=== PATIENT | female | born 1945 | race African-American/Black ===

== ENCOUNTER → 2020-08-18 | Outpatient (CLI) | payer MEDICARE, OTHER ==
[~2020-08-18] MED LIST: ALDACTONE 25MG25 M1 PO; ALLOPURINOL100 MG PO; ALPRAZOLAM0.5 MG PO; ASPIRIN E.C. 8181 MG PO; ATENOLOL25 MG PO; ATIVAN; BLOOD PRESSURE MED PO; BYSTOLIC5 MG PO; CALCIUM CITRAT950 MG PO; CARDIZEM 60MG T60 MG PO; CARDIZEM 90MG T90 MG PO; CENTRUM SILVER1 CTB PO; CENTRUM SILVER1 TA1 PO; CEPHALEXIN500 M1 PO; CORDARONE200 MG/TAB PO; COUMADIN 1MG1 MG/TAB PO; COUMADIN 5MG5 MG/TAB PO; COZAAR100 MG PO; DEMADEX 20MG20 M1 PO; DEMADEX10 MG PO; DYAZIDE 25 MG-31 CAP PO; FOLIC ACID 40400 MCG PO; HAIR SKIN AND NAILS PO; HCTZ 25MG TAB25 MG PO; LASIX 20MG TABL20 MG; LASIX 20MG TABL20 MG PO; LASIX 40MG TABL40 MG PO; LEVOTHROID0.088 MG PO; LEVOTHYROXINE PO; LEVOXYL0.125 MG PO; LISINOPRIL5 MG PO; LOPRESSOR 550 MG/TAB PO; MAXZIDE; MOBIC 7.5MG7.5 MG PO; MULTAQ400 MG PO; NORVASC2.5 MG PO; OXYCODONE5 MG PO; PERCOCET 325 MG1 TA2 PO; PRINIVIL10 MG PO; SENNA-S 50 MG-81 TAB PO; SIMVISTATIN; TOPROL XL 25MG25 MG PO; TRIAMTERENE/HCT1 TAB PO; ULTRAM 50MG TAB50 MG; ULTRAM 50MG TAB50 MG PO; VITAMIN C500 MG PO; XANAX .25M0.25 MG/TA PO; ZEBETA 5MG5 MG PO; ZESTRIL 5MG5 MG PO; ZOCOR; ZOCOR 40MG40 MG PO; ZOFRAN ODT4 MG PO; ZYLOPRIM 100MG100 MG PO
== END ==
LOC: MC.RAD 13:15
DX: Z12.31 Encounter for screening mammogram for malignant neoplasm of breast (principal); N63.10 Unspecified lump in the right breast, unspecified quadrant

== ENCOUNTER → 2020-08-24 | Outpatient (CLI) | payer MEDICARE | LOC: MC.RAD 07:00 | DX: N60.81 Other benign mammary dysplasias of right breast (principal) ==

== ENCOUNTER 2020-12-01 11:08 | Inpatient (IN) | payer MEDICARE, OTHER ==
[~2020-12-01] VITALS: Ht 160 cm; Wt 139.5 kg
[~2020-12-01 11:08] MED LIST changes: -COUMADIN 1MG1 MG/TAB PO; -DEMADEX10 MG PO; -MOBIC 7.5MG7.5 MG PO; -SENNA-S 50 MG-81 TAB PO; -ZOFRAN ODT4 MG PO
[2020-12-01] MEDS ORDERED: MOBIC 7.5MG7.5 MG PO (12:14)
[2020-12-01 13:17] VITALS: BP 98/48; PULSE 73; TEMP 97.3
[2020-12-01 13:47] LABS: BASO % 0.2 % (0.0-2.0); EOS # 0.1 (0.0-0.7); EOS % 1.3 % (0-4.0); GRAN # 6.8 (1.4-6.5); GRAN % 74.5 % (42.2-75.2); HEMOGLOBIN 10.7 g/dl (12.5-16.0); LYMPH # 1.5 (1.2-3.4); LYMPH % 16.8 % (20.0-51.0); MEAN CELL VOLUME 97 fl (80.0-100.0); MEAN CORPUSCULAR HEMOGLOBIN 30 pg (27.0-31.0); MEAN CORPUSCULAR HGB CONC 31 g/dl (33.0-37.0); MEAN PLATELET VOLUME 13.2 fl (7.4-10.4); MONO # 0.6 (0.1-0.6); MONO % 6.9 % (1.7-9.3); PLATELET COUNT 167 K/mm3 (130-400); RED BLOOD COUNT 3.58 M/mm3 (4.10-5.30); REDCELL DISTRIBUTION WIDTH-CV 15.1 % (11.5-14.5)
[2020-12-01 13:49] LABS: HEMATOCRIT 34.6 % (37.0-47.0)
[2020-12-01 13:56] LABS: INR 7.1 (0.8-3.0); PROTHROMBIN TIME 80.2 SECONDS (9.7-12.8)
--- NOTE | 2020-12-01 14:02 | NUR ---
REPORTED LABS TO DR. PULIDO
[2020-12-01 15:58] LABS: CALCIUM 10.5 mg/dL (8.4-10.2); CREATININE, serum 5.71 (0.52-1.25); POTASSIUM 5.5 mmol/L (3.4-5.0)
--- NOTE | 2020-12-01 16:53 | NUR ---
PT TO FLOOR DIRECT ADMIT FROM DR. ORTEGA'S OFFICE. PT ORIENTED TO ROOM IV TO [facility]. STRICT I/O. AHA DIET. TRANSFERS WITH ASSIST X1. PT'S IN AND OUT THIS PM. VSS AND ASSESMENTS COMPLETE.
--- NOTE | 2020-12-01 17:55 | NUR ---
PT UP TO BR VOIDED AND RETURNED TO BED WITH SBA X1.
--- NOTE | 2020-12-01 19:27 | NUR ---
awake, alert, oriented x 4, able to make needs known, sitting in bed, denies needs at this time, call laboy w/i reach. WIll continue to monitor.
[2020-12-01 20:41] VITALS: BP 112/60; BP 84/40; PULSE 60; PULSE 87; TEMP 97.6; TEMP 97.8
--- NOTE | 2020-12-02 00:10 | NUR ---
B/P 84/40, Asymptomatic, awake, alert, oriented x 4, call placed to Coni Julio, no new orders- monitor and recheck B/P in 1 hour.
[2020-12-02 04:20] VITALS: BP 97/51; PULSE 71; TEMP 97.7
[2020-12-02 06:56] LABS: PROTHROMBIN TIME 33.8 SECONDS (9.7-12.8)
[2020-12-02 06:58] LABS: CALCIUM 10.1 mg/dL (8.4-10.2); CREATININE, serum 5.83 (0.52-1.25); POTASSIUM 5.6 mmol/L (3.4-5.0)
--- NOTE | 2020-12-02 07:00 | NUR ---
Report with MAE Kirby. Pt resting in bed, awake and alert, denies needs at this time. Call light in reach.
[2020-12-02 08:09] LABS: IRON,SERUM 58 ug/dL (35-150)
[2020-12-02 08:18] LABS: TOTAL IRON BINDING CAPACITY 283 ug/dL (265-497)
[2020-12-02 08:38] VITALS: BP 91/43; PULSE 72; TEMP 97.8
--- NOTE | 2020-12-02 09:30 | NUR ---
Assessment complete. Pt sitting up in bed eating breakfast, A&O x 4. Edema to bilat lower ext 2+. Pt reports pain to back from laying in bed, denies need for medication at this time. Saline lock IV to left forearm without s/s of complications. Physical assessment otherwise unremarkable. No further needs reported. Call light in reach.
[2020-12-02 12:27] VITALS: BP 84/37; PULSE 81; TEMP 98.3
--- NOTE | 2020-12-02 13:21 | NUR ---
Pt reports nausea that has been present since yesterday, requesting medication if available. Provider notified. Order received.
--- NOTE | 2020-12-02 14:07 | NUR ---
VIJAY met with the patient and her , Venkatesh Lopez" (ph#[phone]), to discuss discharge plan. The patient lives in [place] with her . She reports independence with ADLs and has a walker and canes. The patient's PCP is Dr. Ge Viera and she receives her medications from [facility]. She reports no difficulties obtaining her meds. The patient does not have a DPOA-HC in EMR, but she states that she does have one completed and home. She states that her is her DPOA-HC. PT/OT worked with the patient and recommend SNF vs home health. VIJAY discussed these options with the patient and her . They report that they need some time to think about the options and whether they would want to pursue SNF or home health. VIJAY provided them with Medicare.gov's list of SNF's and home health agencies around [place] [employer]. SW to continue to follow. *Discharge plan: SNF vs home with home health*
[2020-12-02 17:10] VITALS: BP 92/47; PULSE 71; TEMP 98.6
--- NOTE | 2020-12-02 17:50 | NUR ---
Pt resting in bed, visiting with , reports nausea is better when at rest but did come back recently during exercise. No further needs reported. Call light in reach.
--- NOTE | 2020-12-02 19:06 | NUR ---
Report to MAE Kirby.
--- NOTE | 2020-12-02 19:23 | NUR ---
Awake, alert, oriented x 4, able to make needs known, telemetry in use, updated on plan of care, denies pain, at bedside, call laboy w/i reach,
[2020-12-02 21:22] VITALS: BP 98/41; PULSE 68; TEMP 98.7
[2020-12-03] VITALS (7 sets, daily range): BP systolic 74–94; BP diastolic 37–50; PULSE 59–71; TEMP 97.7–98.2
[2020-12-03 06:44] LABS: BASO % 0.3 % (0.0-2.0); EOS # 0.3 (0.0-0.7); EOS % 3.7 % (0-4.0); GRAN # 4.9 (1.4-6.5); GRAN % 55.5 % (42.2-75.2); HEMOGLOBIN 10.6 g/dl (12.5-16.0); LYMPH # 2.8 (1.2-3.4); LYMPH % 31.6 % (20.0-51.0); MEAN CELL VOLUME 97 fl (80.0-100.0); MEAN CORPUSCULAR HEMOGLOBIN 30 pg (27.0-31.0); MEAN CORPUSCULAR HGB CONC 31 g/dl (33.0-37.0); MEAN PLATELET VOLUME 13.9 fl (7.4-10.4); MONO # 0.8 (0.1-0.6); MONO % 8.7 % (1.7-9.3); PLATELET COUNT 160 K/mm3 (130-400); REDCELL DISTRIBUTION WIDTH-CV 15.2 % (11.5-14.5)
[2020-12-03 06:56] LABS: ALBUMIN 3.1 gm/dL (3.5-5.0); BILIRUBIN,TOTAL 0.7 mg/dL (0.0-1.0); CALCIUM 9.9 mg/dL (8.4-10.2); CREATININE, serum 5.61 (0.52-1.25); POTASSIUM 5.5 mmol/L (3.4-5.0); TOTAL PROTEIN 6.1 gm/dL (6.4-8.2)
[2020-12-03 07:08] LABS: MAGNESIUM 2.1 mg/dL (1.6-2.3)
--- NOTE | 2020-12-03 10:00 | NUR ---
Assessment completed, alert/oriented, vital signs stable, denies pain or discomfort, heart RRR/ paced on teled, lungs diminished and distant, patient is morbidly obese, distal pulses are difficulty to palpate, UOP is margainal and notfied physician, a.m meds given, she denies other needs
[2020-12-03 11:19] LABS: INR 1.5 (0.8-3.0); PROTHROMBIN TIME 17.2 SECONDS (9.7-12.8)
--- NOTE | 2020-12-03 13:11 | NUR ---
Initial visit; Patient and her thanked Firesetter for looking in on her and offering encouragement and prayer for God's blessings and healing. Firesetter will continue to look in on Emmanuel.
--- NOTE | 2020-12-03 14:24 | NUR ---
Supervisor Color Paste Mixing attended clinical rounds with the team. SW advised Hospitalist that recommendation is for SNF vs Home Health. Patient states she has made up her mind and she will be returning home upon discharge. Patient states she will consider Home Health and review options with her . Discharge Plan: Home with possible Home Health
--- NOTE | 2020-12-03 15:38 | NUR ---
I met with Mrs Lopez at bedside today to talk about goals of care. Pt does agree that she has some health issues but offers little input into her goals of care. She did call her who particpated in the latter part of this conversation. She did identify that being at home is important to her. She pays the piano and cello and enjoys doing crossword puzzles. She reports that she is very hopeful that Dr Tejada and Dr Burk can work together to find medications that work well together for her heart and kidneys. 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 I talked with her about making decisions that consider her "goals of care" and what they are wanting the outcome to be but also not allowing themselves to be "painted into a corner" that they do not want. Both and Mrs Lopez seem very aware of the serious situations they are facing but having a hard time putting it all together. I will try to follow up with them tomorrow after they have had a chance to talk with each other. At this point they are still wanting aggressive care.
[2020-12-04 04:54] VITALS: BP 94/40; PULSE 61; TEMP 97.9
[2020-12-04 06:59] LABS: INR 1.5 (0.8-3.0)
[2020-12-04 07:01] LABS: CALCIUM 9.7 mg/dL (8.4-10.2); CREATININE, serum 5.39 (0.52-1.25); MAGNESIUM 2.1 mg/dL (1.6-2.3); POTASSIUM 5.6 mmol/L (3.4-5.0)
[2020-12-04 07:51] VITALS: BP 111/57; PULSE 71; TEMP 97.9
--- NOTE | 2020-12-04 09:10 | NUR ---
Spoke with patient and her this morning. She reports very firmly that she is doing well "and I am not going to think about dying". "I am feeling fine and we are just waiting for things to get better." is supportive of her thinking as they have talked about it. I will wait to see how her situation progresses as currently we are waiting for some of her previous meds to clear her system, seeing how her cardiac function may improve as well as her renal function although both have shown a decline over the last 6 months.
--- NOTE | 2020-12-04 10:02 | NUR ---
Shift assessment complete. Pt lying in bed, A&Ox4. at bedside. Pt denies chest pain/SOA/dizziness, reports mild pain to outsides of legs w/touch. BLE w/2+ edema. Also reports intermittent nausea, zofran given per orders. BP stable this morning at 111/57. Denies other needs. Continuing to monitor.
--- NOTE | 2020-12-04 10:12 | NUR ---
Follow-up visit; Patient and her thanked Information Security Engineer for looking in on Emmanuel and wishing her a good weekend and God's blessings. Information Security Engineer also replaced the absent cross on the wall for patient and who expressed appreciation for the gesture.
[2020-12-04 12:00] VITALS: BP 102/39; PULSE 64; TEMP 98.3
--- NOTE | 2020-12-04 15:11 | NUR ---
Sludge Filtration Operator followed up with patient who advised she has not made a decision yet on Home Health services. SW will continue to follow.
[2020-12-04 16:00] VITALS: BP 81/41; PULSE 60; TEMP 98
[2020-12-04 19:43] VITALS: BP 84/41; PULSE 61; TEMP 98
[2020-12-04 20:13] VITALS: BP 90/52
--- NOTE | 2020-12-04 22:40 | NUR ---
Pt BP is still low. I was able to give her all her schedule meds and rechecked the BPlater to make sure BP doesn't drop lower. The last BP check was 92/51. Will continue to monitor.
[2020-12-05] VITALS (8 sets, daily range): BP systolic 84–111; BP diastolic 29–53; PULSE 56–98; TEMP 97.8–98.3
--- NOTE | 2020-12-05 07:12 | NUR ---
Pt sitting up in the chair at this time. She is complaints of some nausea, prn given
[2020-12-05 07:31] LABS: HEMOGLOBIN 10.9 g/dl (12.5-16.0); MEAN CELL VOLUME 97 fl (80.0-100.0); MEAN CORPUSCULAR HEMOGLOBIN 30 pg (27.0-31.0); MEAN CORPUSCULAR HGB CONC 31 g/dl (33.0-37.0); MEAN PLATELET VOLUME 14.1 fl (7.4-10.4); PLATELET COUNT 146 K/mm3 (130-400); RED BLOOD COUNT 3.64 M/mm3 (4.10-5.30); REDCELL DISTRIBUTION WIDTH-CV 15.1 % (11.5-14.5)
[2020-12-05 07:33] LABS: HEMATOCRIT 35.3 % (37.0-47.0)
[2020-12-05 07:40] LABS: CALCIUM 9.8 mg/dL (8.4-10.2); CREATININE, serum 5.01 (0.52-1.25); POTASSIUM 5.4 mmol/L (3.4-5.0)
[2020-12-05 07:44] LABS: INR 1.8 (0.8-3.0); PROTHROMBIN TIME 20.1 SECONDS (9.7-12.8)
--- NOTE | 2020-12-05 08:00 | NUR ---
Pt resting in her chair with her eyes closed and even non labored breathing
--- NOTE | 2020-12-05 17:59 | NUR ---
Pt has sat up in the chair all day per her request. She has slept off and on. No complaints of pain and has had a poor appetite only eating a small amount.
--- NOTE | 2020-12-06 03:29 | NUR ---
Pt was a little drowsy when i came in but easy to arouse.Pt's BP was super low i was unable to give her the lasix but PA is aware of that. Will continue to monitor.
[2020-12-06 04:16] VITALS: BP 94/37; PULSE 66; TEMP 98.9
[2020-12-06 07:46] VITALS: BP 87/47; PULSE 59; TEMP 98.4
[2020-12-06 08:22] LABS: HEMOGLOBIN 10.6 g/dl (12.5-16.0); MEAN CELL VOLUME 97 fl (80.0-100.0); MEAN CORPUSCULAR HEMOGLOBIN 31 pg (27.0-31.0); MEAN CORPUSCULAR HGB CONC 32 g/dl (33.0-37.0); MEAN PLATELET VOLUME 13.8 fl (7.4-10.4); PLATELET COUNT 138 K/mm3 (130-400); RED BLOOD COUNT 3.46 M/mm3 (4.10-5.30)
[2020-12-06 08:27] LABS: HEMATOCRIT 33.6 % (37.0-47.0)
[2020-12-06 08:31] LABS: CALCIUM 9.6 mg/dL (8.4-10.2); CREATININE, serum 4.98 (0.52-1.25); POTASSIUM 4.9 mmol/L (3.4-5.0)
[2020-12-06 08:37] LABS: INR 2.2 (0.8-3.0); PROTHROMBIN TIME 24.9 SECONDS (9.7-12.8)
--- NOTE | 2020-12-06 11:51 | NUR ---
Assessment completed, alert/oriented, vital signs signs remain stable despite continue soft B/P, she reports generalized aches/ discomfort from laying in hospital bed, PT/OT are working with patient, heart RRR/ SR on tele, lungs CTA/dimishied and distant as patient is obese, she reports overall feeling better, Purewick in place and is helping with accurate I/O documentation, edema to BLE is improved, at bedside, Neph and Cards have already been by to see patient, no changes at this time, patient denies othe rneeds currently
[2020-12-06 17:00] VITALS: BP 81/43; PULSE 58; TEMP 98.2
[2020-12-06 20:16] VITALS: BP 81/46; PULSE 64; TEMP 98.3
--- NOTE | 2020-12-06 21:42 | NUR ---
Patient laying in bed upon enter the room. Shift assessment completed. Patient alert and oriented. Patient denies chest pain, SOB/dyspnea, N/V, headache, or dizziness. Patient reports moderate pain to left elbow area. Able to move all the upper and lower extremities and follow commands. PRN Oxycodone given for pain. All scheduled meds given at this time. Purewick in place and draining clear yellow urine. Call light within reach. Patient denies any needs at this time.
[2020-12-07] VITALS (7 sets, daily range): BP systolic 86–100; BP diastolic 38–53; PULSE 59–63; TEMP 98.1–98.8
[2020-12-07 06:25] LABS: HEMOGLOBIN 10.7 g/dl (12.5-16.0); MEAN CELL VOLUME 96 fl (80.0-100.0); MEAN CORPUSCULAR HEMOGLOBIN 30 pg (27.0-31.0); MEAN CORPUSCULAR HGB CONC 32 g/dl (33.0-37.0); PLATELET COUNT 140 K/mm3 (130-400); RED BLOOD COUNT 3.53 M/mm3 (4.10-5.30); REDCELL DISTRIBUTION WIDTH-CV 15.1 % (11.5-14.5)
[2020-12-07 06:31] LABS: INR 2.4 (0.8-3.0); PROTHROMBIN TIME 26.3 SECONDS (9.7-12.8)
[2020-12-07 06:45] LABS: CALCIUM 9.8 mg/dL (8.4-10.2); CREATININE, serum 4.98 (0.52-1.25); POTASSIUM 4.8 mmol/L (3.4-5.0)
--- NOTE | 2020-12-07 07:03 | NUR ---
Report with MAE Rivero. Pt sitting up in bed, awaiting breakfast, assisted with prepping to brush her teeth. Pt denies further needs. Call light in reach.
--- NOTE | 2020-12-07 08:45 | NUR ---
Assessment complete. Pt resting in bed, denies pain at this time, A&O x 4. 1+ edema to Bilat lower ext. Saline lock IV to left forearm without s/s of complications. Physical assessment otherwise unremarkable. External catheter in place with clear, yellow urine. No further needs reported. Call light in reach.
--- NOTE | 2020-12-07 09:59 | NUR ---
Follow-up visit; Patient using telephone, Knit Goods Washer wished her well and offered God's blessings.
--- NOTE | 2020-12-07 13:42 | NUR ---
Pt reports having cramping pain to abd ("stomach") that is intermittent. Pt still has not had a BM, agrees to take morning dose of Miralax now. PRN Mrilandean recently administered d/t c/o nausea following moving from chair to bed.
--- NOTE | 2020-12-07 16:43 | NUR ---
Spraying Machine Operator spoke with Dr. Burk who advised from his standpoint, patient could be discharged tomorrow. SW followed up with patient and her about Home Health and they advised they have not made a decision at this time.
--- NOTE | 2020-12-07 17:30 | NUR ---
Pt up to bathroom, able to have BM, hard formed with bright red blood, pt reports hemorrhoids. Pt reports feeling a little better after having BM.
--- NOTE | 2020-12-07 22:57 | NUR ---
Patient laying in bed upon enter. Shift assessment completed. Patient pleasant, alert and oriented. Patient denies any pain or discomfort. Denies SOB, N/V, headache, or dizziness. Purewick in place and draining yellow urine. All scheduled meds given per AUG. Call light within reach. Will continue to monitor.
[2020-12-08 05:01] VITALS: BP 89/40; PULSE 61; TEMP 98.7
[2020-12-08 06:09] LABS: BASO % 0.1 % (0.0-2.0); EOS # 0.1 (0.0-0.7); EOS % 1.3 % (0-4.0); GRAN # 4.8 (1.4-6.5); GRAN % 62.7 % (42.2-75.2); HEMOGLOBIN 10.3 g/dl (12.5-16.0); LYMPH # 1.8 (1.2-3.4); MEAN CELL VOLUME 96 fl (80.0-100.0); MEAN CORPUSCULAR HEMOGLOBIN 31 pg (27.0-31.0); MEAN CORPUSCULAR HGB CONC 32 g/dl (33.0-37.0); MEAN PLATELET VOLUME 13.2 fl (7.4-10.4); MONO % 12.4 % (1.7-9.3); PLATELET COUNT 136 K/mm3 (130-400); RED BLOOD COUNT 3.38 M/mm3 (4.10-5.30); REDCELL DISTRIBUTION WIDTH-CV 14.9 % (11.5-14.5)
[2020-12-08 06:14] LABS: HEMATOCRIT 32.5 % (37.0-47.0)
[2020-12-08 06:18] LABS: ALBUMIN 2.9 gm/dL (3.5-5.0); CALCIUM 9.4 mg/dL (8.4-10.2); CREATININE, serum 4.68 (0.52-1.25); PHOSPHOROUS 3.8 mg/dL (2.5-4.5); POTASSIUM 4.6 mmol/L (3.4-5.0)
--- NOTE | 2020-12-08 07:00 | NUR ---
Report with MAE Rivero. Pt sitting up in bed, awake and alert, denies needs at this time. Purewick external catheter in place with clear, yellow urine, no s/s of complications. Call light in reach.
[2020-12-08 07:24] VITALS: BP 105/48; PULSE 60; TEMP 99.1
[2020-12-08] MEDS ORDERED: DEMADEX 20MG20 M1 PO ×2 (08:21)
[2020-12-08 11:02] VITALS: BP 90/42; PULSE 61; TEMP 99
--- NOTE | 2020-12-08 11:02 | NUR ---
Patient with questions regarding more affordable nutrition supplement comparable to Nepro. Equate Vanilla Original nutrition shakes heave 370 mg K+ per serving. Encouraged her to try and eat meals but if she does not, then one shake okay but if she eats a substantial meal of a protein and 1-2 sides, then skip the nutritional shake. Encouraged small snacks between meals due to decreased appetite.
--- NOTE | 2020-12-08 12:01 | NUR ---
Pt assisted from BSC to chair after having large formed BM with slight blood tinge. Pt requests resting for a bit in the chair and having her protein shake lunch prior to getting ready for discharge. Pt's in room. No further needs reported. Call light in reach.
--- NOTE | 2020-12-08 13:00 | NUR ---
Discharge instructions reviewed with pt and pt's regarding medication changes and follow-up appointments. Pt and verbalize understanding, questions invited and understanding. Pt discharged home, escorted out of facility via WC accompanied by PHP MAGENTO DEVELOPER and pt's .
--- NOTE | 2020-12-08 13:35 | NUR ---
Asphalt Machine Operator attended clinical rounds with the team and patient to discharge home today. Hospitalist discussed Home Health services with patient who is agreeable to this. VIJAY reviewed Medicare.gov list of HH agencies with patient who states she will talk it over with her and follow up. At a later time, patient's approached VIJAY and advised they selected [facility]. VIJAY contacted Kana at [facility] and faxed discharge orders/referral. Kana advised that they are able to accept referral at this time. Discharge Plan: Home with [facility].
[2020-12-08] MEDS ORDERED: ZOFRAN ODT4 MG PO (13:58)
== END 2020-12-08 13:30 | disposition home health service (06) | DRG 314 ==
LOC: MEDICAL 11:08
PROVIDERS: Internal Medicine; Internal Medicine Nephrology; Physician Assistant; ADMIT Internal Medicine
DX: I95.9 Hypotension, unspecified (principal); I50.21 Acute systolic (congestive) heart failure; I13.0 Hypertensive heart and chronic kidney disease with heart failure and stage 1 through stage 4 chronic kidney disease, or unspecified chronic kidney disease; N17.9 Acute kidney failure, unspecified; Z68.43 Body mass index [BMI] 50.0-59.9, adult; N18.4 Chronic kidney disease, stage 4 (severe); E78.5 Hyperlipidemia, unspecified; I48.0 Paroxysmal atrial fibrillation; E03.9 Hypothyroidism, unspecified; M10.9 Gout, unspecified; E66.01 Morbid (severe) obesity due to excess calories; G47.30 Sleep apnea, unspecified; K58.9 Irritable bowel syndrome, unspecified; F32.9 Major depressive disorder, single episode, unspecified; F41.9 Anxiety disorder, unspecified; R79.1 Abnormal coagulation profile; R77.8 Other specified abnormalities of plasma proteins; D63.1 Anemia in chronic kidney disease; M19.90 Unspecified osteoarthritis, unspecified site; R53.81 Other malaise; Z96.653 Presence of artificial knee joint, bilateral; Z79.01 Long term (current) use of anticoagulants; Z88.2 Allergy status to sulfonamides
CPT/HCPCS: 99222-AI; 99232-AI; 99233-AI; 99239; J2405

== ENCOUNTER → 2020-12-14 | Outpatient (CLI) | payer MEDICARE, OTHER ==
[~2020-12-14] MED LIST changes: +COUMADIN 1MG1 MG/TAB PO; +DEMADEX10 MG PO; +MOBIC 7.5MG7.5 MG PO; +SENNA-S 50 MG-81 TAB PO; +ZOFRAN ODT4 MG PO
[2020-12-14 19:09] LABS: CALCIUM 9.1 mg/dL (8.4-10.2); CREATININE, serum 3.02 (0.52-1.25); POTASSIUM 3.9 mmol/L (3.4-5.0)
== END ==
LOC: ZCOL.LAB 18:33
PROVIDERS: Internal Medicine
DX: Z01.89 Encounter for other specified special examinations (principal)

== ENCOUNTER 2020-12-16 14:49 | Inpatient (IN) | payer MEDICARE, OTHER ==
[2020-12-16] VITALS (61 sets, daily range): O2SAT 92–99
[~2020-12-16] VITALS: Ht 160 cm; Wt 118.8 kg
[~2020-12-16 14:49] MED LIST changes: -COUMADIN 1MG1 MG/TAB PO; -DEMADEX10 MG PO; -SENNA-S 50 MG-81 TAB PO
[2020-12-16 15:35] LABS: HEMOGLOBIN 11.3 g/dl (12.5-16.0); MEAN CELL VOLUME 94 fl (80.0-100.0); MEAN CORPUSCULAR HEMOGLOBIN 29 pg (27.0-31.0); MEAN CORPUSCULAR HGB CONC 31 g/dl (33.0-37.0); MEAN PLATELET VOLUME 11.6 fl (7.4-10.4); PLATELET COUNT 278 K/mm3 (130-400); RED BLOOD COUNT 3.85 M/mm3 (4.10-5.30); REDCELL DISTRIBUTION WIDTH-CV 14.6 % (11.5-14.5)
[2020-12-16 15:40] LABS: HEMATOCRIT 36.2 % (37.0-47.0)
[2020-12-16 15:44] LABS: ARTERIAL BLD GAS O2 SATURATION 91.5 % (92-100); ARTERIAL BLD GAS TCO2 CT 22.6; ARTERIAL BLOOD GAS BASE EXCESS -2.4 (-2-2); ARTERIAL BLOOD GAS HCO3 21.6 meq/L (22-26); ARTERIAL BLOOD GAS PCO2 34.4 mmHg (35-45); ARTERIAL BLOOD GAS PO2 61.1 mmHg (80-100); ARTERIAL BLOOD GAS pH 7.42 (7.35-7.45)
[2020-12-16 15:46] LABS: INR 5.3 (0.8-3.0); PROTHROMBIN TIME 59.9 SECONDS (9.7-12.8)
[2020-12-16 16:01] LABS: ALBUMIN 3.2 gm/dL (3.5-5.0); BILIRUBIN,TOTAL 0.7 mg/dL (0.0-1.0); CALCIUM 9.2 mg/dL (8.4-10.2); CREATININE, serum 3.42 (0.52-1.25); POTASSIUM 3.8 mmol/L (3.4-5.0); TOTAL PROTEIN 6.4 gm/dL (6.4-8.2)
[2020-12-16 16:02] LABS: BAND 19 % (0-10); LYMPHOCYTE 7 % (20.0-51.0); MYELOCYTE 1 % (0-0); NEUTROPHILS 67 % (42.0-75.2); PLATELET ESTIMATE NORMAL (NORMAL)
[2020-12-16 16:05] LABS: HYPOCHROMIA 2+
[2020-12-16 16:18] LABS: TROPONIN-I 2.17 ng/mL (0.000-0.035)
[2020-12-16 16:29] LABS: COLLECTION METHOD CLEAN CATCH
[2020-12-16 17:00] LABS: C-REACTIVE PROTEIN 21.6 mg/dL (0.0-0.9)
[2020-12-16 17:06] LABS: MUCOUS Present /lpf; PH 5 (5-8); SQUAMOUS EPITHELIAL 0-2 /hpf; URINE APPEARANCE Cloudy; URINE BACTERIA Rare /hpf; URINE BILIRUBIN Negative (NEGATIVE); URINE BLOOD 1+ (NEGATIVE); URINE COLOR Yellow; URINE GLUCOSE Negative (NEGATIVE); URINE KETONE Negative (NEGATIVE); URINE LEUKOCYTE ESTERASE 3+ (NEGATIVE); URINE NITRATE Negative (NEGATIVE); URINE PROTEIN(semi-quant) Negative (NEGATIVE); URINE UROBILINOGEN Negative (NEGATIVE)
[2020-12-16 22:46] LABS: ARTERIAL BLOOD GAS BASE EXCESS -2.7 (-2-2); ARTERIAL BLOOD GAS HCO3 21.3 meq/L (22-26); ARTERIAL BLOOD GAS PCO2 34.4 mmHg (35-45); ARTERIAL BLOOD GAS PO2 69.3 mmHg (80-100); ARTERIAL BLOOD GAS pH 7.41 (7.35-7.45)
[2020-12-17] VITALS (685 sets, daily range): BP systolic 91–104; BP diastolic 52–61; PULSE 59–65; TEMP 97.6–98.7; O2SAT 86–99
[2020-12-17 06:01] LABS: BASO % 0.2 % (0.0-2.0); GRAN # 11.1 (1.4-6.5); GRAN % 88.7 % (42.2-75.2); HEMOGLOBIN 11.3 g/dl (12.5-16.0); LYMPH # 0.9 (1.2-3.4); LYMPH % 7.4 % (20.0-51.0); MEAN CELL VOLUME 97 fl (80.0-100.0); MEAN CORPUSCULAR HEMOGLOBIN 30 pg (27.0-31.0); MEAN CORPUSCULAR HGB CONC 31 g/dl (33.0-37.0); MEAN PLATELET VOLUME 11.3 fl (7.4-10.4); MONO # 0.3 (0.1-0.6); MONO % 2.7 % (1.7-9.3); PLATELET COUNT 291 K/mm3 (130-400); RED BLOOD COUNT 3.77 M/mm3 (4.10-5.30); REDCELL DISTRIBUTION WIDTH-CV 14.5 % (11.5-14.5)
[2020-12-17 06:07] LABS: HEMATOCRIT 36.4 % (37.0-47.0)
[2020-12-17 06:16] LABS: BILIRUBIN,TOTAL 0.6 mg/dL (0.0-1.0); CREATININE, serum 3.49 (0.52-1.25); POTASSIUM 4.9 mmol/L (3.4-5.0); TOTAL PROTEIN 6.1 gm/dL (6.4-8.2)
[2020-12-17 12:15] LABS: INR 6.1 (0.8-3.0)
[2020-12-18] VITALS (367 sets, daily range): BP systolic 93–110; BP diastolic 46–61; PULSE 60–67; TEMP 97.6–98.5; O2SAT 85–98
[2020-12-18 05:42] LABS: ARTERIAL BLD GAS O2 SATURATION 95.8 % (92-100); ARTERIAL BLD GAS TCO2 CT 24.5; ARTERIAL BLOOD GAS BASE EXCESS -1.7 (-2-2); ARTERIAL BLOOD GAS HCO3 23.2 meq/L (22-26); ARTERIAL BLOOD GAS PO2 78.1 mmHg (80-100); ARTERIAL BLOOD GAS pH 7.38 (7.35-7.45)
[2020-12-18 06:28] LABS: HEMOGLOBIN 11.6 g/dl (12.5-16.0); MEAN CORPUSCULAR HEMOGLOBIN 29 pg (27.0-31.0); MEAN CORPUSCULAR HGB CONC 32 g/dl (33.0-37.0); PLATELET COUNT 330 K/mm3 (130-400); RED BLOOD COUNT 3.96 M/mm3 (4.10-5.30); REDCELL DISTRIBUTION WIDTH-CV 14.4 % (11.5-14.5)
[2020-12-18 06:31] LABS: HEMATOCRIT 36.5 % (37.0-47.0); MEAN CELL VOLUME 92 fl (80.0-100.0)
[2020-12-18 06:39] LABS: ALBUMIN 2.9 gm/dL (3.5-5.0); BILIRUBIN,TOTAL 0.6 mg/dL (0.0-1.0); CALCIUM 9.1 mg/dL (8.4-10.2); CREATININE, serum 3.1 (0.52-1.25); INR 1.4 (0.8-3.0); POTASSIUM 4.2 mmol/L (3.4-5.0); PROTHROMBIN TIME 15.5 SECONDS (9.7-12.8); TOTAL PROTEIN 6.1 gm/dL (6.4-8.2)
[2020-12-18 07:04] LABS: BAND 4 % (0-10); HYPOCHROMIA 1+; NUCLEATED RED BLOOD CELL 1 (0-6); PLATELET ESTIMATE NORMAL (NORMAL)
[2020-12-18 07:05] LABS: LYMPHOCYTE 6 % (20.0-51.0); NEUTROPHILS 85 % (42.0-75.2)
[2020-12-18 22:25] LABS: HEPATITIS B SURFACE ANTIBODY <2.0 (()); HEPATITIS B SURFACE ANTIGEN Negative (Negative); HEPATITIS C VIRUS ANTIBODY Negative (Negative)
[2020-12-19 05:20] VITALS: BP 94/52; PULSE 60; TEMP 97.6
[2020-12-19 07:33] LABS: ALBUMIN 2.8 gm/dL (3.5-5.0); BILIRUBIN,TOTAL 0.7 mg/dL (0.0-1.0); CALCIUM 9.2 mg/dL (8.4-10.2); CREATININE, serum 2.67 (0.52-1.25); POTASSIUM 4.3 mmol/L (3.4-5.0); TOTAL PROTEIN 5.9 gm/dL (6.4-8.2)
[2020-12-19 07:41] LABS: HEMOGLOBIN 11.8 g/dl (12.5-16.0); MEAN CELL VOLUME 93 fl (80.0-100.0); MEAN CORPUSCULAR HEMOGLOBIN 30 pg (27.0-31.0); MEAN CORPUSCULAR HGB CONC 32 g/dl (33.0-37.0); PLATELET COUNT 328 K/mm3 (130-400); RED BLOOD COUNT 3.98 M/mm3 (4.10-5.30); REDCELL DISTRIBUTION WIDTH-CV 14.3 % (11.5-14.5)
[2020-12-19 07:44] LABS: HEMATOCRIT 36.9 % (37.0-47.0)
[2020-12-19 08:08] VITALS: BP 136/49; PULSE 72; TEMP 97.6
[2020-12-19 08:35] VITALS: BP 104/56; PULSE 64; TEMP 98
[2020-12-19 10:18] LABS: BAND 2 % (0-10); LYMPHOCYTE 8 % (20.0-51.0); METAMYELOCYTE 2 % (0-0); NEUTROPHILS 86 % (42.0-75.2)
[2020-12-19 10:19] LABS: HYPOCHROMIA 1+; PLATELET ESTIMATE NORMAL (NORMAL)
[2020-12-19 10:20] LABS: OVALOCYTES 1+
[2020-12-19 16:25] VITALS: BP 109/50; PULSE 66; TEMP 98.3
[2020-12-19 21:23] VITALS: BP 98/51; PULSE 63; TEMP 97.6
[2020-12-20] VITALS (7 sets, daily range): BP systolic 93–111; BP diastolic 45–56; PULSE 60–69; TEMP 98–98.8
[2020-12-20 09:21] LABS: HEMOGLOBIN 11.7 g/dl (12.5-16.0); MEAN CELL VOLUME 94 fl (80.0-100.0); MEAN CORPUSCULAR HEMOGLOBIN 30 pg (27.0-31.0); MEAN CORPUSCULAR HGB CONC 32 g/dl (33.0-37.0); MEAN PLATELET VOLUME 11.7 fl (7.4-10.4); RED BLOOD COUNT 3.89 M/mm3 (4.10-5.30); REDCELL DISTRIBUTION WIDTH-CV 14.6 % (11.5-14.5)
[2020-12-20 09:26] LABS: CALCIUM 9.1 mg/dL (8.4-10.2); CREATININE, serum 2.34 (0.52-1.25); HEMATOCRIT 36.6 % (37.0-47.0); PLATELET COUNT 216 K/mm3 (130-400); POTASSIUM 4.1 mmol/L (3.4-5.0)
[2020-12-20 09:34] LABS: INR 1.5 (0.8-3.0); PROTHROMBIN TIME 17.1 SECONDS (9.7-12.8)
[2020-12-20 09:57] LABS: ALBUMIN 2.7 gm/dL (3.5-5.0); BILIRUBIN UNCONJUGATED 0.1 mg/dL (0.0-1.1); BILIRUBIN,DIRECT 0.6 mg/dL (0.0-0.4); BILIRUBIN,TOTAL 0.7 mg/dL (0.0-1.0); TOTAL PROTEIN 5.8 gm/dL (6.4-8.2)
[2020-12-20 10:19] LABS: BAND 17 % (0-10); LYMPHOCYTE 9 % (20.0-51.0); NEUTROPHILS 72 % (42.0-75.2); PLATELET ESTIMATE NORMAL (NORMAL)
[2020-12-21] VITALS (7 sets, daily range): BP systolic 92–105; BP diastolic 46–54; PULSE 60–68; TEMP 97.8–98.7
[2020-12-21 06:55] LABS: HEMATOCRIT 37.5 % (37.0-47.0); MEAN CELL VOLUME 93 fl (80.0-100.0); MEAN CORPUSCULAR HEMOGLOBIN 30 pg (27.0-31.0); MEAN CORPUSCULAR HGB CONC 32 g/dl (33.0-37.0); MEAN PLATELET VOLUME 11.5 fl (7.4-10.4); PLATELET COUNT 207 K/mm3 (130-400); RED BLOOD COUNT 4.05 M/mm3 (4.10-5.30); REDCELL DISTRIBUTION WIDTH-CV 14.4 % (11.5-14.5)
[2020-12-21 07:00] LABS: CALCIUM 9.2 mg/dL (8.4-10.2); CREATININE, serum 2.31 (0.52-1.25); POTASSIUM 4.3 mmol/L (3.4-5.0)
[2020-12-21 07:18] LABS: INR 1.7 (0.8-3.0); PROTHROMBIN TIME 18.6 SECONDS (9.7-12.8)
[2020-12-21 07:52] LABS: BAND 1 % (0-10); LYMPHOCYTE 14 % (20.0-51.0); NEUTROPHILS 81 % (42.0-75.2); PLATELET ESTIMATE NORMAL (NORMAL)
[2020-12-22 03:54] VITALS: BP 126/72; PULSE 83; TEMP 97.8
[2020-12-22 07:29] LABS: HEMATOCRIT 39.3 % (37.0-47.0); HEMOGLOBIN 12.4 g/dl (12.5-16.0); MEAN CELL VOLUME 95 fl (80.0-100.0); MEAN CORPUSCULAR HEMOGLOBIN 30 pg (27.0-31.0); MEAN CORPUSCULAR HGB CONC 32 g/dl (33.0-37.0); MEAN PLATELET VOLUME 12.3 fl (7.4-10.4); PLATELET COUNT 158 K/mm3 (130-400); RED BLOOD COUNT 4.16 M/mm3 (4.10-5.30); REDCELL DISTRIBUTION WIDTH-CV 14.6 % (11.5-14.5)
[2020-12-22 07:38] LABS: CALCIUM 9.4 mg/dL (8.4-10.2); CREATININE, serum 1.94 (0.52-1.25); POTASSIUM 4.2 mmol/L (3.4-5.0)
[2020-12-22 07:52] LABS: TROPONIN-I 0.502 ng/mL (0.000-0.035)
[2020-12-22 08:00] VITALS: BP 109/51; PULSE 64; TEMP 97.4
[2020-12-22 08:09] LABS: BAND 2 % (0-10); LYMPHOCYTE 13 % (20.0-51.0); NEUTROPHILS 79 % (42.0-75.2); PLATELET ESTIMATE NORMAL (NORMAL)
[2020-12-22 12:19] VITALS: BP 101/51; PULSE 61; TEMP 97.8
[2020-12-22 16:00] VITALS: BP 104/54; PULSE 63; TEMP 97.8
[2020-12-22 20:20] VITALS: BP 104/53; PULSE 60; TEMP 98.4
[2020-12-22 23:09] VITALS: BP 104/52; PULSE 57; TEMP 98.3
[2020-12-23 04:31] VITALS: BP 106/57; PULSE 64; TEMP 98.4
[2020-12-23 06:43] LABS: INR 2.5 (0.8-3.0); PROTHROMBIN TIME 28.2 SECONDS (9.7-12.8)
[2020-12-23 06:49] LABS: CALCIUM 9.6 mg/dL (8.4-10.2); CREATININE, serum 2.08 (0.52-1.25); POTASSIUM 4.6 mmol/L (3.4-5.0)
[2020-12-23 08:30] LABS: URINE TOTAL VOLUME 975 mL
[2020-12-23 08:31] LABS: CREATININE, serum 2.08 (0.52-1.25)
[2020-12-23 09:30] VITALS: BP 96/52; PULSE 60; TEMP 98
[2020-12-23 12:36] VITALS: BP 123/57; PULSE 59; TEMP 97.7
[2020-12-23 17:45] VITALS: BP 103/61; PULSE 70; TEMP 97.9
[2020-12-23 21:36] VITALS: BP 106/58; PULSE 71; TEMP 99
[2020-12-23 23:20] VITALS: BP 104/52; PULSE 67; TEMP 99
[2020-12-24 04:49] VITALS: BP 116/53; PULSE 67; TEMP 98.6
[2020-12-24 07:11] LABS: HEMATOCRIT 39.3 % (37.0-47.0); HEMOGLOBIN 12.6 g/dl (12.5-16.0); MEAN CELL VOLUME 92 fl (80.0-100.0); MEAN CORPUSCULAR HEMOGLOBIN 30 pg (27.0-31.0); MEAN CORPUSCULAR HGB CONC 32 g/dl (33.0-37.0); PLATELET COUNT 140 K/mm3 (130-400); RED BLOOD COUNT 4.27 M/mm3 (4.10-5.30); REDCELL DISTRIBUTION WIDTH-CV 14.8 % (11.5-14.5)
[2020-12-24 07:17] LABS: INR 2.9 (0.8-3.0); PROTHROMBIN TIME 32.9 SECONDS (9.7-12.8)
[2020-12-24 07:35] LABS: CALCIUM 9.3 mg/dL (8.4-10.2); CREATININE, serum 1.85 (0.52-1.25); POTASSIUM 4.5 mmol/L (3.4-5.0)
[2020-12-24 08:00] VITALS: BP 131/55; PULSE 64; TEMP 97.6
[2020-12-24 11:10] VITALS: BP 128/52; PULSE 66; TEMP 97.7
[2020-12-24 15:36] VITALS: BP 106/51; PULSE 62; TEMP 98
[2020-12-24 20:20] VITALS: BP 125/65; PULSE 68; TEMP 98.5
[2020-12-25] VITALS: BP 117/56; PULSE 67; TEMP 98.4
[2020-12-25 04:00] VITALS: BP 121/60; PULSE 60; TEMP 98.5
[2020-12-25 07:40] LABS: INR 3.9 (0.8-3.0); PROTHROMBIN TIME 43.4 SECONDS (9.7-12.8)
[2020-12-25 08:00] VITALS: BP 132/72; PULSE 80; TEMP 97.9
[2020-12-25] MEDS ORDERED: DEMADEX 20MG20 M1 PO (11:35)
[2020-12-25 12:49] VITALS: BP 128/65; PULSE 75; TEMP 98.1
[2020-12-25 15:28] VITALS: BP 125/65; PULSE 79; TEMP 98
[2020-12-25 20:11] VITALS: BP 103/51; PULSE 68; TEMP 97.7
[2020-12-26 00:46] VITALS: BP 107/56; PULSE 64; TEMP 97.8
[2020-12-26 05:30] VITALS: BP 99/45; PULSE 62; TEMP 98.1
[2020-12-26 07:02] LABS: INR 4.5 (0.8-3.0)
[2020-12-26 07:05] LABS: ALBUMIN 2.6 gm/dL (3.5-5.0); CALCIUM 9.6 mg/dL (8.4-10.2); CREATININE, serum 2.97 (0.52-1.25); MAGNESIUM 2.1 mg/dL (1.6-2.3); POTASSIUM 4.7 mmol/L (3.4-5.0); TOTAL PROTEIN 5.7 gm/dL (6.4-8.2)
[2020-12-26 07:07] LABS: PROTHROMBIN TIME 50.9 SECONDS (9.7-12.8)
[2020-12-26 07:18] LABS: HEMATOCRIT 37.9 % (37.0-47.0); HEMOGLOBIN 12.3 g/dl (12.5-16.0); MEAN CELL VOLUME 91 fl (80.0-100.0); MEAN CORPUSCULAR HEMOGLOBIN 30 pg (27.0-31.0); MEAN CORPUSCULAR HGB CONC 33 g/dl (33.0-37.0); MEAN PLATELET VOLUME 13.3 fl (7.4-10.4); PLATELET COUNT 153 K/mm3 (130-400); RED BLOOD COUNT 4.15 M/mm3 (4.10-5.30); REDCELL DISTRIBUTION WIDTH-CV 15.6 % (11.5-14.5)
[2020-12-26 08:16] VITALS: BP 103/46; PULSE 60; TEMP 97.9
[2020-12-26 11:59] VITALS: BP 95/48; PULSE 59; TEMP 97.9
[2020-12-26 16:00] VITALS: BP 116/49; PULSE 61; TEMP 98.6
[2020-12-26 20:55] VITALS: BP 94/46; PULSE 61; TEMP 97.9
[2020-12-27 00:20] VITALS: BP 102/47; PULSE 62; TEMP 97.9
[2020-12-27 04:36] VITALS: BP 98/45; PULSE 60; TEMP 97.7
[2020-12-27 07:47] LABS: HEMATOCRIT 37.7 % (37.0-47.0); HEMOGLOBIN 12.1 g/dl (12.5-16.0); MEAN CELL VOLUME 94 fl (80.0-100.0); MEAN CORPUSCULAR HEMOGLOBIN 30 pg (27.0-31.0); MEAN CORPUSCULAR HGB CONC 32 g/dl (33.0-37.0); PLATELET COUNT 151 K/mm3 (130-400); RED BLOOD COUNT 4.03 M/mm3 (4.10-5.30); REDCELL DISTRIBUTION WIDTH-CV 15.5 % (11.5-14.5)
[2020-12-27 07:54] LABS: INR 4.6 (0.8-3.0)
[2020-12-27 08:05] LABS: CALCIUM 9.9 mg/dL (8.4-10.2); CREATININE, serum 2.9 (0.52-1.25); POTASSIUM 4.2 mmol/L (3.4-5.0)
[2020-12-27 08:07] LABS: PROTHROMBIN TIME 51.4 SECONDS (9.7-12.8)
[2020-12-27 08:14] VITALS: BP 108/54; PULSE 61; TEMP 97.8
[2020-12-27 08:45] LABS: BASOPHIL 1 % (0-2); LYMPHOCYTE 7 % (20.0-51.0); NEUTROPHILS 86 % (42.0-75.2); NUCLEATED RED BLOOD CELL 1 (0-6)
[2020-12-27 08:46] LABS: ANISOCYTOSIS 1+; HYPOCHROMIA 2+; PLATELET ESTIMATE NORMAL (NORMAL)
[2020-12-27 11:04] VITALS: BP 96/50; PULSE 65; TEMP 98.4
[2020-12-27 17:49] VITALS: BP 98/47; PULSE 60; TEMP 98.2
[2020-12-27 19:49] VITALS: BP 104/51; PULSE 62; TEMP 97.3
[2020-12-28 00:39] VITALS: BP 111/48; PULSE 64; TEMP 98.2
[2020-12-28 04:55] VITALS: BP 108/57; PULSE 64; TEMP 98.3
[2020-12-28 06:52] LABS: HEMATOCRIT 38.3 % (37.0-47.0); HEMOGLOBIN 12.3 g/dl (12.5-16.0); MEAN CELL VOLUME 92 fl (80.0-100.0); MEAN CORPUSCULAR HEMOGLOBIN 30 pg (27.0-31.0); MEAN CORPUSCULAR HGB CONC 32 g/dl (33.0-37.0); MEAN PLATELET VOLUME 12.4 fl (7.4-10.4); PLATELET COUNT 166 K/mm3 (130-400); RED BLOOD COUNT 4.17 M/mm3 (4.10-5.30); REDCELL DISTRIBUTION WIDTH-CV 15.8 % (11.5-14.5)
[2020-12-28 07:02] LABS: CREATININE, serum 2.87 (0.52-1.25); POTASSIUM 3.5 mmol/L (3.4-5.0)
[2020-12-28 08:25] VITALS: BP 103/45; PULSE 64; TEMP 97.6
[2020-12-28 08:39] LABS: BAND 1 % (0-10); LYMPHOCYTE 11 % (20.0-51.0); METAMYELOCYTE 1 % (0-0); NEUTROPHILS 79 % (42.0-75.2)
[2020-12-28 08:41] LABS: PLATELET ESTIMATE NORMAL (NORMAL)
[2020-12-28 08:42] LABS: ANISOCYTOSIS 2+; HYPOCHROMIA 1+
[2020-12-28] MEDS ORDERED: DEMADEX10 MG PO (09:47)
[2020-12-28] MEDS ORDERED: SENNA-S 50 MG-81 TAB PO (09:48)
[2020-12-28 10:41] LABS: INR 4.1 (0.8-3.0)
== END 2020-12-28 12:44 | DRG 177 ==
LOC: COL.ER 14:49 → ICU 17:10 → MEDICAL 17:10 → EDBEDREQ 20:15 → ICU 12-17 05:30 → MEDICAL 12-18 17:30
PROVIDERS: Emergency Medicine; Family Medicine; Internal Medicine Nephrology; Internal Medicine Pulmonary Disease; Nurse Practitioner Family; Student in an Organized Health Care Education/Training Program; ADMIT Student in an Organized Health Care Education/Training Program
PROC: XW033E5 Introduction of Remdesivir Anti-infective into Peripheral Vein, Percutaneous Approach, New Technology Group 5 (ICD-10-PCS; 2020-12-17)
PROC: 0JH63XZ Insertion of Tunneled Vascular Access Device into Chest Subcutaneous Tissue and Fascia, Percutaneous Approach (ICD-10-PCS; principal; 2020-12-18)
PROC: 02H633Z Insertion of Infusion Device into Right Atrium, Percutaneous Approach (ICD-10-PCS; 2020-12-18)
DX: U07.1 COVID-19 (principal); J12.82 Pneumonia due to coronavirus disease 2019; I50.23 Acute on chronic systolic (congestive) heart failure; J96.01 Acute respiratory failure with hypoxia; I13.0 Hypertensive heart and chronic kidney disease with heart failure and stage 1 through stage 4 chronic kidney disease, or unspecified chronic kidney disease; N17.9 Acute kidney failure, unspecified; N39.0 Urinary tract infection, site not specified; I24.8 Other forms of acute ischemic heart disease; Z68.43 Body mass index [BMI] 50.0-59.9, adult; D72.829 Elevated white blood cell count, unspecified; I95.9 Hypotension, unspecified; I48.0 Paroxysmal atrial fibrillation; E78.5 Hyperlipidemia, unspecified; E03.9 Hypothyroidism, unspecified; N18.9 Chronic kidney disease, unspecified; G47.30 Sleep apnea, unspecified; E66.01 Morbid (severe) obesity due to excess calories; F41.9 Anxiety disorder, unspecified; E87.70 Fluid overload, unspecified; I44.7 Left bundle-branch block, unspecified; D50.0 Iron deficiency anemia secondary to blood loss (chronic); M10.9 Gout, unspecified; M19.90 Unspecified osteoarthritis, unspecified site; R53.81 Other malaise; Z01.89 Encounter for other specified special examinations
CPT/HCPCS: 99223-AI; 99232-AI; 99233-AI; 99239; J0692; J0696; J1100; J1644; J2704; J2997; J3430; J7030; J7050; J8540

== ENCOUNTER → 2020-12-30 | Outpatient (REF) ==
[~2020-12-30] MED LIST changes: +COUMADIN 1MG1 MG/TAB PO; +DEMADEX10 MG PO; +SENNA-S 50 MG-81 TAB PO
[2020-12-30 15:10] LABS: CALCIUM 9.6 mg/dL (8.4-10.2); CREATININE, serum 2.54 (0.52-1.25)
[2020-12-30 15:14] LABS: POTASSIUM 5.8 mmol/L (3.4-5.0)
== END ==
LOC: ZLAB.STJ 14:54
PROVIDERS: Internal Medicine
DX: I50.23 Acute on chronic systolic (congestive) heart failure (principal)

== ENCOUNTER → 2021-01-01 | Outpatient (REF) ==
[2021-01-01 11:43] LABS: INR 3.3 (0.8-3.0); PROTHROMBIN TIME 37.2 SECONDS (9.7-12.8)
[2021-01-01 11:52] LABS: HEMATOCRIT 36.2 % (37.0-47.0); HEMOGLOBIN 11.4 g/dl (12.5-16.0); MEAN CELL VOLUME 95 fl (80.0-100.0); MEAN CORPUSCULAR HEMOGLOBIN 30 pg (27.0-31.0); MEAN CORPUSCULAR HGB CONC 32 g/dl (33.0-37.0); MEAN PLATELET VOLUME 13.6 fl (7.4-10.4); PLATELET COUNT 147 K/mm3 (130-400); RED BLOOD COUNT 3.82 M/mm3 (4.10-5.30); REDCELL DISTRIBUTION WIDTH-CV 16.1 % (11.5-14.5)
== END ==
LOC: ZCOL.LAB 11:38
PROVIDERS: Internal Medicine
DX: D72.829 Elevated white blood cell count, unspecified (principal); R79.1 Abnormal coagulation profile

== ENCOUNTER → 2021-01-19 | Outpatient (REF) ==
[2021-01-19 09:34] LABS: CALCIUM 9.5 mg/dL (8.4-10.2); CREATININE, serum 2.26 (0.52-1.25); POTASSIUM 4.4 mmol/L (3.4-5.0)
== END ==
LOC: ZLAB.STJ 09:19
PROVIDERS: Internal Medicine
DX: I50.23 Acute on chronic systolic (congestive) heart failure (principal)

== ENCOUNTER → 2021-01-25 | Outpatient (REF) | LOC: ZLAB.STJ 11:36 | DX: I48.0 Paroxysmal atrial fibrillation (principal) ==

== ENCOUNTER → 2021-01-26 | Outpatient (CLI) | payer MEDICARE, OTHER ==
[2021-01-26 16:10] LABS: PROTHROMBIN TIME 56.7 SECONDS (9.7-12.8)
== END ==
LOC: COL.VAS 13:52
PROVIDERS: Internal Medicine Nephrology
DX: N18.4 Chronic kidney disease, stage 4 (severe) (principal); I48.0 Paroxysmal atrial fibrillation

== ENCOUNTER → 2021-01-28 | Outpatient (REF) ==
[2021-01-28 12:57] LABS: CALCIUM 9.9 mg/dL (8.4-10.2); CREATININE, serum 2.75 (0.52-1.25); POTASSIUM 3.9 mmol/L (3.4-5.0)
== END ==
LOC: ZLAB.STJ 12:40
PROVIDERS: Internal Medicine Nephrology
DX: N12 Tubulo-interstitial nephritis, not specified as acute or chronic (principal)

== ENCOUNTER 2021-02-17 10:05 | Observation (INO) | payer MEDICARE ==
[~2021-02-17] VITALS: Ht 157.5 cm; Wt 118.8 kg
[~2021-02-17 10:05] MED LIST changes: -COUMADIN 1MG1 MG/TAB PO
[2021-02-17 10:59] LABS: INR 3.3 (0.8-3.0); PROTHROMBIN TIME 36.5 SECONDS (9.7-12.8)
[2021-02-17 11:11] LABS: CALCIUM 10.5 mg/dL (8.4-10.2); CREATININE, serum 2.87 (0.52-1.25); POTASSIUM 3.4 mmol/L (3.4-5.0)
--- NOTE | 2021-02-17 11:21 | NUR ---
Dr. Rowe notified of INR at 3.3. Dr. Rowe will come and talk with the patient.
[2021-02-17] MEDS ORDERED: COUMADIN 1MG1 MG/TAB PO (11:38)
[2021-02-17] MEDS ORDERED: DEMADEX10 MG PO (11:42)
--- NOTE | 2021-02-17 11:47 | NUR ---
Dr. Rowe in the room talking with the patient and informed that surgery will be cancelled for today. Dr. Rowe will contact Dr. Burk for further instructions.
--- NOTE | 2021-02-17 12:30 | NUR ---
Patient informed that she will be admitted to the medical floor for further treatment and care.
[2021-02-17 12:47] VITALS: BP 81/40; PULSE 59; TEMP 97.6
--- NOTE | 2021-02-17 12:48 | NUR ---
Initial visit; Patient thanked Deliver Driver for offering the Lord's Blessings prior to her 'Procedure.'
--- NOTE | 2021-02-17 13:00 | NUR ---
Continue to await bed availabilty for transfer to medical floor.
--- NOTE | 2021-02-17 14:33 | NUR ---
Report called to Bruce RN and patient transferred to room 357 per cart and transferred per slide board to bed. INT in place in the left AC.
[2021-02-17 16:41] VITALS: BP 95/52; PULSE 62; TEMP 97.5
[2021-02-17 16:58] LABS: BASO % 0.3 % (0.0-2.0); EOS % 0.1 % (0-4.0); GRAN # 6.2 (1.4-6.5); GRAN % 64.9 % (42.2-75.2); HEMATOCRIT 39.5 % (37.0-47.0); HEMOGLOBIN 12.2 g/dl (12.5-16.0); LYMPH # 2.2 (1.2-3.4); MEAN CELL VOLUME 96 fl (80.0-100.0); MEAN CORPUSCULAR HEMOGLOBIN 30 pg (27.0-31.0); MEAN CORPUSCULAR HGB CONC 31 g/dl (33.0-37.0); MEAN PLATELET VOLUME 12.6 fl (7.4-10.4); MONO # 1.1 (0.1-0.6); MONO % 11.1 % (1.7-9.3); PLATELET COUNT 203 K/mm3 (130-400); REDCELL DISTRIBUTION WIDTH-CV 16.9 % (11.5-14.5)
[2021-02-17 17:05] LABS: INR 3.3 (0.8-3.0); PROTHROMBIN TIME 37.3 SECONDS (9.7-12.8)
[2021-02-17 20:18] VITALS: BP 82/45; PULSE 59; TEMP 97.5
--- NOTE | 2021-02-17 21:41 | NUR ---
Patient assessed around 1924. Alert and oriented, and able to make needs known. Denies having pain and discomfort, except nausea. Given PRN Zofran as requested. Patient reports that it has helped, but is still not wanting to take HS medications at this time. Peripheral INT to left AC. HD cath to right chest with dressing CDI. Restricted extremity to RUE, signage put inplace, as well as wrist band. Denies SOB and dyspnea. LS CTA in upper, diminished in lower. Respirations even and unlabored. HRR. Capillary refill less than 3 seconds. Non-tenting skin turgor. BSAx4. Abdomen soft. 2+ edema BLE. Mepilex to left elbow, and mepilex to bottom CDI. Voices no further questions, needs, or concerns at this time. Resting in bed with call light within reach.
[2021-02-17 23:41] VITALS: BP 88/49; PULSE 60; TEMP 97.6
[2021-02-17 23:53] VITALS: BP 120/52; PULSE 70; TEMP 98.2
[2021-02-18 01:19] LABS: COLLECTION METHOD CLEAN CATCH
[2021-02-18 01:26] LABS: MUCOUS Present /lpf; PH 5 (5-8); URINE APPEARANCE Cloudy; URINE BACTERIA Rare /hpf; URINE BILIRUBIN Negative (NEGATIVE); URINE BLOOD 1+ (NEGATIVE); URINE CALCIUM OXALATE CRYSTAL Present /hpf; URINE COLOR Amber; URINE GLUCOSE Negative (NEGATIVE); URINE KETONE Negative (NEGATIVE); URINE LEUKOCYTE ESTERASE 2+ (NEGATIVE); URINE NITRATE Negative (NEGATIVE); URINE PROTEIN(semi-quant) 1+ (NEGATIVE)
[2021-02-18 03:38] VITALS: BP 81/40; PULSE 60; TEMP 97.6
--- NOTE | 2021-02-18 06:18 | NUR ---
Patient denies having nausea this morning, stating that she is feeling better. Took Synthroid this morning. Voices no questions, needs, or concerns at this time. Resting in bed with call light within reach.
[2021-02-18 08:32] LABS: ALBUMIN 2.4 gm/dL (3.5-5.0); BILIRUBIN,TOTAL 0.7 mg/dL (0.0-1.0); CALCIUM 9.7 mg/dL (8.4-10.2); CREATININE, serum 2.43 (0.52-1.25); POTASSIUM 3.6 mmol/L (3.4-5.0); TOTAL PROTEIN 5.2 gm/dL (6.4-8.2)
[2021-02-18 09:00] VITALS: BP 89/47; PULSE 59; TEMP 97.9
--- NOTE | 2021-02-18 10:23 | NUR ---
Follow-up visit; Patient thanked Rock Contractor for looking in on her and offering encouragement and prayer. Rock Contractor will keep Nathanoctaviano in her prayers.
[2021-02-18 11:14] LABS: INR 1.5 (0.8-3.0); PROTHROMBIN TIME 16.5 SECONDS (9.7-12.8)
[2021-02-18 12:30] VITALS: BP 84/51; PULSE 59; TEMP 97.9; TEMP 98.2
--- NOTE | 2021-02-18 12:37 | NUR ---
This RN and pt's TEAMCENTER CONSULTANT have offered to reposition pt multiple times this morning. Each time, pt refused stating she was comfortable as is. Did take a short walk w/PT this morning but refused to sit in recliner. Importance of physical activity and repositioning to aid in healing of pressure ulcers emphasized to pt. Will continue to encourage more activity.
[2021-02-18 15:43] VITALS: BP 90/53; PULSE 59; TEMP 98.1
--- NOTE | 2021-02-18 16:28 | NUR ---
apartment maintenance worker met with patient and spouse and discussed discharge options. Patient does not qualify for fci care as her status is observation. Patient and spouse verbalize understanding and plan to return home with home health. Patient is currently receiving home health through [facility] for fci, physical and occupational therapies. Patient states she was given exercizes to work on between therapy visits. Worker provided information on fdc nursing facility care and mediaid application if patient and spouse felt that was needed in the future. Worker met with Dr Hayward and advised of not qualifying for skilled care.
[2021-02-18 20:58] VITALS: BP 100/56; PULSE 60; TEMP 97.9
[2021-02-19] VITALS (13 sets, daily range): BP systolic 73–102; BP diastolic 38–61; PULSE 59–64; TEMP 97.2–98.4
--- NOTE | 2021-02-19 05:55 | NUR ---
PT HAD UNEVENTFUL NIGHT, PT REPOSITIONED TWICE THROUGH OUT NIGHT. PT WAS MOTIVATED TO REPOSITION WITH NURSE AND AIDE AT 2000 AND 0000. OTHER SUGGESTED TIMES PT REFUSED. MEPILEX CHANGED ON PT'S SACRUM BY THIS NURSE. PT DENIES SCD USE. PT REPORTS PAIN TO SACRUM 5/10 WITH MOVEMENT 8/10. PT DENIES N.V.D. PT EXPRESSES NO ADDITIONAL NEEDS AT THIS TIME. CALL LIGHT WITHIN REACH.
[2021-02-19 08:44] LABS: ALBUMIN 2.4 gm/dL (3.5-5.0); BILIRUBIN,TOTAL 0.7 mg/dL (0.0-1.0); CALCIUM 9.8 mg/dL (8.4-10.2); CREATININE, serum 2.25 (0.52-1.25); POTASSIUM 3.5 mmol/L (3.4-5.0); TOTAL PROTEIN 5.2 gm/dL (6.4-8.2)
--- NOTE | 2021-02-19 18:54 | NUR ---
PATIENT HAS HAD AN EVENTFUL DAY. PATIENT ROTATED Q2. SCHEDULED MEDICATIONS GIVEN. SHIFT ASSESSMENT PREFORMED. FISTULA PLACED ON RIGHT FOREARM. VSS. FISTULA SUTURE CLEAN, DRY, AND INTACT. PATIENT DENIES ANY PAIN, DISCOMFORT, OR SOA AT THIS TIME. CALL LIGHT IN REACH. , BILL AT THE BEDSIDE.
[2021-02-20 00:29] VITALS: BP 92/53; PULSE 59; TEMP 97.6
[2021-02-20 04:17] VITALS: BP 91/54; PULSE 60; TEMP 97.7
--- NOTE | 2021-02-20 05:34 | NUR ---
PT HAD UNEVENTFUL NIGHT, PT DENIES PAIN TO RFA FISTULA SITE. SITE REMAINS OPEN TO AIR, FISTUALA BRUIT AND THRILL ASUCULATED AND WNL. PT EXPRESSES NO ADDITONAL NEEDS AT THIS TIME. CALL LIGHT WITHIN REACH.
[2021-02-20 07:12] VITALS: BP 91/50; PULSE 60; TEMP 97.8
--- NOTE | 2021-02-20 08:14 | NUR ---
SHIFT ASSESSMENT PREFORMED. SCHEDULED MEDS GIVEN. PRN TYLENOL GIVEN FOR 8/10 ACHING PAIN IN RIGHT FOREARM. ST 2 ULCER LOCATED ON LEFT BUTTOCK. PATIENT REPOSITIONED. SCRATCHES LOCATED ON LEFT KRUEGER. PUREWICK IN PLACE. FISTULA SITE CLEAN, DRY, AND INTACT. PATIENT DENIES ANY FURTHER PAIN, DISCOMFORT, SOA, OR NEEDS AT THIS TIME. VSS. CALL LIGHT IN REACH. FALL PRECAUTIONS IN PLACE.
[2021-02-20 11:14] VITALS: BP 101/56; PULSE 52; TEMP 97.7
--- NOTE | 2021-02-20 11:35 | NUR ---
VIJAY recieved Notification of DC. VIJAY faxed DC orders and facesheet to [facility]. call center operator will follow-up with Admission time. Fax complete to . .
--- NOTE | 2021-02-20 12:45 | NUR ---
PATIENT DEEMED FIT FOR DISCHARGE. DISCHARGE EDUCATION/INSTRUCTIONS GIVEN. PATIENT DENIES ANY PAIN, DISCOMFORT, SOA, OR NEEDS AT THIS TIME. BED BATH GIVEN. RIGHT BUTTOCK DRESSING CHANGED. IV DC'D, CATHETER INTACT, NO SIGNS OF PHLEBITIS. VSS. PATIENT ESCORTED OUT OF THE BUILDING BY [facility]IA [facility], [place] STAFF VIA WHEELCHAIR. TRANSPORTING HOME.
== END 2021-02-20 12:30 | disposition home health service (06) ==
LOC: SDCO 10:05 → MEDICAL 10:05 → SDCO 12:00 → MEDICAL 15:59 → SDCO 16:00 → MEDICAL 16:01
PROVIDERS: Surgery; ADMIT Internal Medicine Nephrology
DX: I13.0 Hypertensive heart and chronic kidney disease with heart failure and stage 1 through stage 4 chronic kidney disease, or unspecified chronic kidney disease (principal); N18.4 Chronic kidney disease, stage 4 (severe); I50.9 Heart failure, unspecified; I47.1 Supraventricular tachycardia; I48.91 Unspecified atrial fibrillation; G89.29 Other chronic pain; M54.9 Dorsalgia, unspecified; E66.01 Morbid (severe) obesity due to excess calories; L89.159 Pressure ulcer of sacral region, unspecified stage; M19.90 Unspecified osteoarthritis, unspecified site; D63.1 Anemia in chronic kidney disease; G47.30 Sleep apnea, unspecified; K58.9 Irritable bowel syndrome, unspecified; E03.9 Hypothyroidism, unspecified; E78.5 Hyperlipidemia, unspecified; F41.9 Anxiety disorder, unspecified; Z79.890 Hormone replacement therapy; Z79.01 Long term (current) use of anticoagulants; Z79.899 Other long term (current) drug therapy; R62.7 Adult failure to thrive
CPT/HCPCS: G0378; G0379; J0690; J1644; J2250; J2405; J3010

== ENCOUNTER 2021-04-23 13:15 | Inpatient (IN) | payer MEDICARE ==
[~2021-04-23] VITALS: Ht 154.9 cm; Wt 110.6 kg
[~2021-04-23 13:15] MED LIST changes: +COUMADIN 1MG1 MG/TAB PO
[2021-04-23 14:39] LABS: BASO % 0.2 % (0.0-2.0); EOS % 0.1 % (0-4.0); GRAN # 13.6 K/mm3 (1.4-6.5); HEMATOCRIT 43.7 % (37.0-47.0); HEMOGLOBIN 14.4 g/dl (12.5-16.0); LYMPH # 1.1 K/mm3 (1.2-3.4); LYMPH % 6.7 % (20.0-51.0); MEAN CELL VOLUME 92 fl (80.0-100.0); MEAN CORPUSCULAR HEMOGLOBIN 30 pg (27.0-31.0); MEAN CORPUSCULAR HGB CONC 33 g/dl (33.0-37.0); MEAN PLATELET VOLUME 11.2 fl (7.4-10.4); MONO % 6.2 % (1.7-9.3); PLATELET COUNT 168 K/mm3 (130-400); RED BLOOD COUNT 4.73 M/mm3 (4.10-5.30)
[2021-04-23 14:47] LABS: INR 1.5 (0.8-3.0); PROTHROMBIN TIME 16.4 SECONDS (9.7-12.8)
[2021-04-23 14:49] LABS: PARTIAL THROMBOPLASTIN TIME 25.1 SECONDS (26.0-37.0)
[2021-04-23 15:05] LABS: ALBUMIN 2.3 gm/dL (3.4-4.8); BILIRUBIN,TOTAL 1.2 mg/dL (0.2-1.2); CALCIUM 10.1 mg/dL (8.4-10.2); CREATININE, serum 2.98 mg/dL (0.57-1.11); POTASSIUM 5.5 mmol/L (3.5-4.5); TOTAL PROTEIN 5.8 gm/dL (6.2-8.1)
[2021-04-23 15:12] LABS: TROPONIN-I 1.268 ng/mL (0.00-0.033)
--- NOTE | 2021-04-23 17:35 | NUR ---
PATIENT IS A&O. VSS WITH TELE INPLACE. O2 AT 2L PER NC WITH SATS IN MID TO UPPER 90'S. PATIENT DENIES SOA OR CHEST PAIN AT THIS TIME. PATIENT ONLY C/O BACK PAIN WHEN LAID FLAT TO TRANSFER TO BED FROM ER CART. PATIENT REPORTS SHE HAS CHRONIC BACK ISSUES AND DOESN'T TOLERATE LAYING FLAT WELL. PATIENT REPORTS SHE IS MUCH BETTER NOW WITH HOB RAISED. RIGHT FISTULA INPLACE HOWEVER, PATIENT HAS NOT BEEN GETTING DIALYSIS LIKLEY DUE TO NON-COMPLIENCE FROM [facility]. PATIENT HAS EXTENSIVE RENAL & CARDIAC HX. RENAL DIET ORDERED. RIGHT HAND IV TO INT. HEAD TO TOE ASSESSMENT COMPLETE. AT BEDSIDE. ORIENTED TO ROOM. CALL LIGHT IN REACH.
[2021-04-23 17:40] VITALS: BP 93/56; PULSE 77; TEMP 98.6
[2021-04-23] MEDS ORDERED: PERCOCET 325 MG1 TA2 PO ×2 (20:08→20:09)
[2021-04-23 21:46] VITALS: BP 93/54; PULSE 72; TEMP 98.3
[2021-04-24] VITALS (7 sets, daily range): BP systolic 80–94; BP diastolic 45–56; PULSE 70–76; TEMP 97.5–98.5
--- NOTE | 2021-04-24 09:26 | NUR ---
PT BLOOD PRESSURE LOW, RECHECKED AT THIS TIME, 94/56. MAP 65 WILL CONTINUE TO MONITOR.
--- NOTE | 2021-04-24 09:32 | NUR ---
AFTER INITIAL PAIN ASSESSMENT, PT REPORTS RIGHT EAR PAIN, ACHING, RATED 8/10. PT REPORTS HAVING PAIN SINCE WAKING UP THIS MORNING.
--- NOTE | 2021-04-24 10:24 | NUR ---
PT ALERT AND ORIENTED. PT HAS RED, BLANCHABLE SPOT ON RIGHT BUTTOCK, TENDER TO TOUCH. MEPELEX PLACED OVER SITE TO ALLEVIATE PRESSURE. PT HAD SOFT BLOOD PRESSURES, MAP 65 WILL CONTINUE TO MONITOR. PT REPORTS RIGHT EAR PAIN SINCE WAKING THIS AM. PT ALSO REPORTS BACK PAIN, CANNOT RECALL WHEN IT STARTED. PT CALL LIGHT WITHIN REACH, NO OTHER NEEDS EXPRESSED AT THIS TIME.
--- NOTE | 2021-04-24 10:45 | NUR ---
NOTIFIED BY LAB, PT CURRENTLY REFUSING LAB DRAW. PT STATES WILLING TO TRY AGAIN AT LATER TIME.
--- NOTE | 2021-04-24 11:44 | NUR ---
DR. JIMENEZ NOTIFIED OF CARDIOLOGY CONSULT. NOTIFIED OF TROPONIN TRENDS AND CREATININE LABS. VERIFIED ON ASPIRIN AND LIPITOR.
--- NOTE | 2021-04-24 12:50 | NUR ---
NOTIFIED DR. HOPKINS OF PT LOW BLOOD PRESSURES. NO FURTHER ORDERS AT THIS TIME.
--- NOTE | 2021-04-24 15:12 | NUR ---
Plan is to return home with as care support Mejia Met with patient about her care. Patient reports that her PCP is Dr. Viera and she prefers [facility] for medications. Patient reports tht she has home health with [facility]. Patient shares that she has a Pacemaker and Dr. Tejada is the specialist. Patient reports that she uses a walker and wheelchair. Patient report that she has concerns with getting home. Patient reports that she fears that she is not able to walk up the stairs and has 4 steps that she does not believe she will be able to get up them. Patient reports that her spouse can not support her based about her getting in the home due to size. Patient reports that in home she can go to the rest room and walk a few steps but it isget in and out of the house. Patient is using home health care. SW contacted home health and spoke with the nrse about home health. Nurse reports that they are not comfortable with helping client into the home and it the past it took 4-5 persons to get her up the stairs. Nursing from home health reports that they have several concerns about the patient not willing to work towards better mobility and has the capacity to do it but has several comorbidities. Home health reports that her primary also has concern of patient being stuck in the house and her kidney fuction. Patient is reported to have refused dialysis with Dr. Burk according to nurse with home health and patient having lack of nurtrition in her diet. Patient refused to work with in stay PT to support mobile functioning. Patient declined needing SNF. Last seen primary over 6 months. Safety concern at home. Will follow.
[2021-04-24 15:40] LABS: INR 1.7 (0.8-3.0); PROTHROMBIN TIME 19.2 SECONDS (9.7-12.8)
--- NOTE | 2021-04-24 16:21 | NUR ---
NOTIFIED DR. HOPKINS OF EXCORIATION FOUND IN SKIN FOLDS. RECEIVED TELEPHONE ORDER FOR NYSTATIN CREAM.
--- NOTE | 2021-04-24 16:57 | NUR ---
Pt continuing on plan of care. Dr. Burk aware of low blood pressures. Monitoring level of consciousness per orders. Pt excoriation found during partial bed bath with wipes. Interdry placed under breasts. Mepelex pad placed this AM on right buttock, area blanchable and tender to touch. Pt visited during shift. Pt had little output, purewick placed for management of I/Os.
--- NOTE | 2021-04-24 18:38 | NUR ---
PT FOOD TRAY ARRIVED, PT RESTING, NOT EATING AT THIS TIME. REMINDED OF FOOD AVAILABLE.
[2021-04-25] VITALS (8 sets, daily range): BP systolic 84–108; BP diastolic 48–63; PULSE 70–75; TEMP 97–98.8
--- NOTE | 2021-04-25 00:27 | NUR ---
Patient resting in bed upon enter the room. Patient A/Ox3. Patient appears very tired. Dinner tray at bed-side and patient hasn't been anything. Patient states she is not hungry. Patient denies chest pain or SOB. All scheduled meds given per AUG. Patient took medications without difficulty. Call light in reach. Will continue to monitor.
--- NOTE | 2021-04-25 08:30 | NUR ---
PT ALERT AND ORIENTED. PT HAS ACTIVE BOWEL SOUNDS. PT HAS DIMINISHED BASES BILATERALLY, CLEAR UPPER LOBES. PT HAS EXCORIATION UNDER BREASTS, CLEANED WITH PERSONAL WIPES AND DESENEX POWERDER REPLACED, INTERDRY UNDER BREASTS. ABDOMINAL AND GROIN SKIN FOLDS CLEANED WITH PERSONAL WIPES, DESENEX POWDER PLACED IN FOLDS. PT CALL LIGHT WITHIN REACH. PT VISITING.
--- NOTE | 2021-04-25 10:11 | NUR ---
NOTIFIED DR. HOPKINS OF PT REFUSING LAB DRAWS. CHARGE NURSE NOTIFIED AND ATTEMPT AT DRAWING LABS, UNSUCCESSFUL.
--- NOTE | 2021-04-25 13:23 | NUR ---
THIS RN DISCUSSED NEED FOR LABS, AND ANSWERED QUESTIONS TO BEST OF ABILITY. PT WILLING TO HAVE LABS DRAWN AT THIS TIME. LAB NOTIFIED.
--- NOTE | 2021-04-25 13:29 | NUR ---
DR. HOPKINS NOTIFIED OF PT PAIN AND LABS ATTEMPTING TO BE DRAWN AT THIS TIME. NO FURTHER INSTUCTIONS RECEIVED AT THIS TIME.
[2021-04-25 13:39] LABS: BASO % 0.3 % (0.0-2.0); EOS # 0.1 K/mm3 (0.0-0.7); EOS % 0.7 % (0-4.0); GRAN # 11.2 K/mm3 (1.4-6.5); GRAN % 75.1 % (42.2-75.2); HEMATOCRIT 38.4 % (37.0-47.0); LYMPH # 2.2 K/mm3 (1.2-3.4); MEAN CELL VOLUME 89 fl (80.0-100.0); MEAN CORPUSCULAR HEMOGLOBIN 30 pg (27.0-31.0); MEAN CORPUSCULAR HGB CONC 34 g/dl (33.0-37.0); MEAN PLATELET VOLUME 11.1 fl (7.4-10.4); MONO # 1.2 K/mm3 (0.1-0.6); MONO % 8.1 % (1.7-9.3); PLATELET COUNT 178 K/mm3 (130-400); REDCELL DISTRIBUTION WIDTH-CV 16.9 % (11.5-14.5)
[2021-04-25 14:05] LABS: ALBUMIN 1.9 gm/dL (3.4-4.8); CALCIUM 9.5 mg/dL (8.4-10.2); CREATININE, serum 3.48 mg/dL (0.57-1.11); PHOSPHOROUS 3.6 mg/dL (2.3-4.7); POTASSIUM 4.4 mmol/L (3.5-4.5)
--- NOTE | 2021-04-25 15:45 | NUR ---
PT BLADDER SCANNDED AT THIS TIME, 5ML FOUND.
--- NOTE | 2021-04-25 17:09 | NUR ---
NOTIFIED DR. HOPKINS OF UNSUCCESSFUL STRAIGHT CATHERIZATION. RECEIVED ORDERS FOR IV BOLUS. INQUIRED ABOUT BLOOD CULTURES PRIOR TO IV ABX.
[2021-04-25 19:18] LABS: COLLECTION METHOD CLEAN CATCH
[2021-04-25 19:25] LABS: MUCOUS Present /lpf; PH 5 (5-8); URINE APPEARANCE Cloudy; URINE BACTERIA Many /hpf; URINE BILIRUBIN Negative (NEGATIVE); URINE BLOOD 2+ (NEGATIVE); URINE COLOR Amber; URINE GLUCOSE Negative (NEGATIVE); URINE KETONE Negative (NEGATIVE); URINE LEUKOCYTE ESTERASE 3+ (NEGATIVE); URINE NITRATE Negative (NEGATIVE); URINE PROTEIN(semi-quant) 1+ (NEGATIVE); URINE RBC 20-50 /hpf; URINE WBC >50 /hpf
--- NOTE | 2021-04-25 19:30 | NUR ---
Pt continuing on plan of care. Pt had intermittent shoulder pain this shift, notified Dr. Burk and pt states self resoved pain towards end of shift. Pt had urine cultures and labs drawn prior to abx administration for potential infection. No significant changes noted in patient status. Pt able to converse and express needs. Pt had decreased urine output and oral intake. Encouraged meals throughout shift.
--- NOTE | 2021-04-25 20:00 | NUR ---
PATIENT IS ALERT AND ORIENTED X4 BUT DROWSY. AT BEDSIDE EARLIER. PATIENT IS ON RENAL DIET AND TURN Q2 SCHEEDULE. PATIENT HAS PUREWICK WITH TEA COLORED AND CLEAR OUTPUT. PATIENT IS ON TELE AND HAS SCD'S ON BILATERAL LOWER EXTREMITIES. PATIENT HAS IV TO LEFT HAND AND RIGHT ARM RESTRICTED. FISTULA TO RIGHT FOREARM. BRUIT AND THRILL NOT PRESENT. PATIENT GIVEN WARM BLANKET AND ICE WATER. PATIENT DENIES PAIN OR FURTHER NEEDS AT THIS TIME. PATIENT HELPED TO TURN IN BED. CALL LIGHT WITHIN REACH. HEAD TO TOE ASSESSMENT COMPLETE.
[2021-04-26 03:53] VITALS: BP 97/54; PULSE 70; TEMP 97.4
[2021-04-26 06:10] LABS: BASO % 0.2 % (0.0-2.0); EOS % 0.2 % (0-4.0); GRAN # 11.8 K/mm3 (1.4-6.5); GRAN % 77.3 % (42.2-75.2); HEMATOCRIT 38.6 % (37.0-47.0); LYMPH # 1.8 K/mm3 (1.2-3.4); LYMPH % 12.1 % (20.0-51.0); MEAN CELL VOLUME 88 fl (80.0-100.0); MEAN CORPUSCULAR HEMOGLOBIN 30 pg (27.0-31.0); MEAN CORPUSCULAR HGB CONC 34 g/dl (33.0-37.0); MEAN PLATELET VOLUME 11.6 fl (7.4-10.4); MONO # 1.4 K/mm3 (0.1-0.6); MONO % 9.1 % (1.7-9.3); PLATELET COUNT 187 K/mm3 (130-400); RED BLOOD COUNT 4.38 M/mm3 (4.10-5.30); REDCELL DISTRIBUTION WIDTH-CV 16.7 % (11.5-14.5)
--- NOTE | 2021-04-26 06:12 | NUR ---
PATIENT HAS SLEPT ON AND OFF THROUGHOUT THE NIGHT. REPOSITIONED THROUGHOUT NIGHT. GIVEN WARM TEA FOR SORE THROAT. PATIENT CALLED THIS MORNING AND WILL BE HERE THIS AFTERNOON. NO FURTHER NEEDS AT THIS TIME. WILL REPORT TO DAYSHIFT.
[2021-04-26 06:36] LABS: ALBUMIN 1.9 gm/dL (3.4-4.8); CALCIUM 9.3 mg/dL (8.4-10.2); CREATININE, serum 3.39 mg/dL (0.57-1.11); POTASSIUM 4.5 mmol/L (3.5-4.5)
[2021-04-26 06:43] LABS: PROTHROMBIN TIME 22.5 SECONDS (9.7-12.8)
[2021-04-26 07:53] VITALS: BP 92/53; PULSE 69; TEMP 97.8
--- NOTE | 2021-04-26 08:00 | NUR ---
PATIENT IS A&O BUT DROWSY. PATIENT IS OBESE, WEAK AND IS SOA WITH ANY ACTIVITY. PATIENT IS MOSTLY BED-BOUND, TURN Q2H, ACTIVITY INTOLERANT. PATIENT ON RA WITH SATS AT 92-93% A&P LUNG JAMISON ARE DEMINISHED. HEART SOUNDS ARE DISTANT AND WEAK. BLE EDEMA. NOTED HYPOTENSION OF 92/53, ALL OTHER VSS. TELE INPLACE. HEAD TO TOE ASSESSMENT COMPLETE. PATIENT IS CURRENTLY NPO FOR STRESS TEST. PUREWICK INPLACE WITH SMALL AMOUNTS OF GABRIEL COLORED URINE NOTED. PATIENT HAS HX OF CKD AND DIALYSIS BUT STOPPED GOING. RIGHT FORARM FISTULA IS BAD, NO BRUITT OR THRILL NOTED. LEFT HAND IV TO INT. AM MEDS GIVEN WITH SIPS OF WATER. NO OTHER NEEDS AT THIS TIME. CALL LIGHT IN REACH. BED ALARM ON.
--- NOTE | 2021-04-26 10:01 | NUR ---
Initial visit; Patient thanked Medical Equipment Technician for offering a blessing and wishing her well.
[2021-04-26 11:18] VITALS: BP 90/54; PULSE 78; TEMP 97.8
--- NOTE | 2021-04-26 12:40 | NUR ---
AT BEDSIDE VISITING WITH PATIENT &
--- NOTE | 2021-04-26 14:12 | NUR ---
NEPHROLOGY AT BEDSIDE ROUNDING.
--- NOTE | 2021-04-26 15:20 | NUR ---
AT the request of NADEGE Baker, I met with her and with Mr & Mrs Lopez in the room to discuss what hospice and palliative care would look like and where those services could be provided. Mr Lopez also had Emmanuel's brother on the line during this meeting. Shannan has spoken with the family about a stress test and the concern that this could stress her heart that could lead to her . Mr Lopez does not want to proceed with the stress test, Emmanuel would still like to talk with Dr Burk directly about this tomorrow before a decision is made. Mr Lopez reports that they had [facility] before and he had liked them and their services. We will wait until they have talked again with Dr Burk and have reached a solid decision before further action is taken. Mr Lopez is very firm that he wants to take her home and that she would there. We did talk about the [facility] but due to a room and board charge--he was not interested.
[2021-04-26 15:21] VITALS: BP 99/45; PULSE 94; TEMP 98.4
--- NOTE | 2021-04-26 15:54 | NUR ---
Junior Systems Administrator collaborated with Tiny Palliative RN who advised family is considering discharge home with [facility]. Patient is firm that she wants to speak directly with Dr. Burk before she makes a final decision.
[2021-04-26 19:50] VITALS: BP 91/52; PULSE 77; TEMP 97.6
[2021-04-27] VITALS (13 sets, daily range): BP systolic 90–112; BP diastolic 24–77; PULSE 71–124; TEMP 97.4–98.8
--- NOTE | 2021-04-27 02:43 | NUR ---
Informed by Tele that pt. was tachycardic and irregular. Cat call called, EKG and vitals taken. Pt reports not having any chest pain. Attempted to call Dr. dodd, no answer. TRISTAN Newberry also came to the room. Dr. Marquez also notified. New orders received. Wm called again and reports ok with Coni assisting.
[2021-04-27 03:33] LABS: BASO % 0.2 % (0.0-2.0); GRAN # 12.7 K/mm3 (1.4-6.5); GRAN % 76.8 % (42.2-75.2); HEMOGLOBIN 13.9 g/dl (12.5-16.0); LYMPH # 2.8 K/mm3 (1.2-3.4); MEAN CELL VOLUME 91 fl (80.0-100.0); MEAN CORPUSCULAR HEMOGLOBIN 30 pg (27.0-31.0); MEAN CORPUSCULAR HGB CONC 33 g/dl (33.0-37.0); MEAN PLATELET VOLUME 10.7 fl (7.4-10.4); MONO # 0.8 K/mm3 (0.1-0.6); MONO % 4.8 % (1.7-9.3); PLATELET COUNT 174 K/mm3 (130-400); RED BLOOD COUNT 4.62 M/mm3 (4.10-5.30); REDCELL DISTRIBUTION WIDTH-CV 17.1 % (11.5-14.5)
[2021-04-27 03:39] LABS: INR 2.3 (0.8-3.0); PROTHROMBIN TIME 25.7 SECONDS (9.7-12.8)
[2021-04-27 03:50] LABS: ALBUMIN 1.9 gm/dL (3.4-4.8); CALCIUM 9.4 mg/dL (8.4-10.2); CREATININE, serum 3.49 mg/dL (0.57-1.11); PHOSPHOROUS 4.7 mg/dL (2.3-4.7); POTASSIUM 4.5 mmol/L (3.5-4.5)
[2021-04-27 03:58] LABS: TROPONIN-I 1.462 ng/mL (0.00-0.033)
[2021-04-27 04:15] LABS: ARTERIAL BLD GAS O2 SATURATION 95.7 % (92-100); ARTERIAL BLD GAS TCO2 CT 14.8; ARTERIAL BLOOD GAS BASE EXCESS -8.2 (-2-2); ARTERIAL BLOOD GAS HCO3 14.1 meq/L (22-26); ARTERIAL BLOOD GAS PO2 77.5 mmHg (80-100); ARTERIAL BLOOD GAS pH 7.41 (7.35-7.45)
[2021-04-27 04:17] LABS: ARTERIAL BLOOD GAS PCO2 22.6 mmHg (35-45)
--- NOTE | 2021-04-27 04:46 | NUR ---
0240- THIS NURSE ENTERS PT ROOM TO CHECK ON PT. PT IS AWAKE ET STATES THAT SHE IS HAVING PAIN IN HER LOWER LEGS, BREATHING BECOMES LABORED. PT IS A&0X3. TELEMETRY CALLS Ronnie MARTINEZ RN ET REPORTS TACHYCARDIA. CAT CALL ARRIVES SHORTLY AFTER. PT DENIES CHEST PAIN, STATES THAT SHE DOES HAVE PAIN IN HER RIGHT SHOULDER. 0242- ATTEMPTED TO TAKE PT VS. BP ON LEFT ARM CONTINUES TO CYCLE ET WILL NOT TAKE. HR IS 124, O2 SATS 93% ON RA. RESPIRATORY IS HERE FOR EKG. 0254- AMINA HUDSON IS HERE. TURPENTINER DIETER IS ALSO HERE ET OBTAINS PT BP MANUALLY ON LEFT LOWER FOREARM 90/56. PT'S BLOOD SUGAR IS CHECKED ET IS 82. 0300- PT'S ARRIVES @ BEDSIDE, IS INFORMED 0320- LABS HAVE BEEN ORDERED ET DRAWN ON PT. AMIODARONE GTT HAS ALSO BEEN ORDERED. ICU NURSE HAS ADMINISTERED BOLUS THROUGH PERIPHERAL IV ON LEFT HAND. 0325- PERIPHERAL IV SITE HAS INFILTRATED. SITE IS PAINFUL ET COLD TO TOUCH. IV CATHETER IS REMOVED. WARM BLANKETS ARE USED TO WARM UP PT'S ARM. ALL OF PT'S EXTREMITIES ARE COLD, CLAMMY ET ASHEN. PT IS COOL TO TOUCH ET DIAPHORETIC, REPEATEDLY STATES HELP ME BUT IS UNABLE TO STATE WHAT SHE NEEDS. 0345- ORDERS RECEIVED FOR ABGs TO BE DRAWN. DIETER WALL UNSUCCESSFULLY ATTEMPTS X1 TO INSERT IV INTO PT'S LEFT FA. PT'S EXTREMITIES REMAIN TO BE COLD. Hilton HUDSON DISCUSSES CODE STATUS WITH PT ET ET INSERTION OF CENTRAL LINE R/T NOT BEING ABLE TO INSERT PERIPHERAL IV. 0358- Hilton HUDSON VERBALLY NOTIFIED OF PT CRITICAL TROPONIN. 0403- RT HERE TO DRAW ABGs. 0415- PT'S CALLS STAFF INTO ROOM. PT'S EYES ARE WIDE ET IS GASPING, BEGINS AGONALLY BREATHING. Hilton HUDSON @ BEDSIDE. TIME OF CALLED @ 0415. PT IS GIVEN BED BATH ET POSTMORTEM CARES DONE. JEWELRY REMOVED ET GIVEN TO . DENIES NEEDS @ THIS TIME, IS GIVEN PRIVACY. 0427- DIETRE WALL, TURPENTINER CALLS [facility] [place] [facility].
--- NOTE | 2021-04-27 04:50 | NUR ---
0235 TELEMETRY STATED PATIENT IN POSSIBLE VTACH/AFIB RVR. FLOOR NURSES CONTACTED. OBTAINING EKG. 0238 AMINA HUDSON IN ICU. NOTIFIED OF EKG CHANGES. AMINA HUDSON AND MYSELF TO FLOOR 0242 ARRIVAL IN PATIENT ROOM. QUICK REPORT RECEIVED FROM FLOOR NURSE. PATIENT REPORTING LEFT SHOULDER PAINS THAT HAS NOT CHANGE IN INTENSITY OVER 5 DAYS. PATIENT IS COOL AND CLAMMY. ALERT AND ORIENTATED. BLOOD GLUCOSE CHECKED WITH WNL. DR. HOPKINS WAS CONTACTED BY NURSES. AMINA HUDSON SPOKE WITH CARDIOLOGY. VERBAL ORDERS RECEIVED FOR AMIO BOLUS AND DRIP. OBTAINED SUPPLIES AND BEGUN AMIO BOLUS. AFTER BOLUS, INFUSION PAUSED FOR LAB DRAW. PATIENT HAS RESTRICTED EXTREMITY. PRIOR TO INITIATION OF AMIO DRIP IV REFLUSHED AND PATIENT REPORTED SEVERE PAIN IN SITE. DIETER XIONG ATTEMPTED TO RESTART ANOTHER IV, UNSUCCESSFUL. AFTER LONG DISCUSSION WITH PATIENT, PATIENT , HOUSE SUPERVISIOR, AND AMINA HUDSON, PATIENT ARGEED TO BE MOVED TO ICU FOR CENTRAL LINE PLACEMENT AND WOULD LIKE TO BE A CHEMICAL CODE ONLY. ABG ALSO ORDERED. THIS NURSE LEFT ROOM AT 0350 TO PREPARE ROOM IN ICU.
--- NOTE | 2021-04-27 07:47 | NUR ---
MTN notifed of family refusal for organs, may release body to [facility].
--- NOTE | 2021-04-27 08:00 | NUR ---
TAKING OVER PATIENT WHO PASSED AROUND 0400. & FAMILY AT BEDSIDE. WAITING FOR HOME TO ARRIVE. POST MORTUM CARES PROVIDED ON SOURCING MANAGER. NO NEEDS AT THIS TIME. FAMILY GIVEN PRIVACY.
--- NOTE | 2021-04-27 09:00 | NUR ---
HOME ARRIVED AND PATIENT DISCHARGED INTO THEIR CARE. AND FAMILY AT BEDSIDE. PERSONAL BELONGINGS WENT HOME WITH .
== END 2021-04-27 09:00 | disposition expired ==
LOC: COL.ER 13:15 → SURG 16:24
PROVIDERS: Internal Medicine; Student in an Organized Health Care Education/Training Program; ADMIT Internal Medicine Nephrology
DX: I13.2 Hypertensive heart and chronic kidney disease with heart failure and with stage 5 chronic kidney disease, or end stage renal disease (principal); I21.4 Non-ST elevation (NSTEMI) myocardial infarction; I50.43 Acute on chronic combined systolic (congestive) and diastolic (congestive) heart failure; N39.0 Urinary tract infection, site not specified; N18.5 Chronic kidney disease, stage 5; Z68.42 Body mass index [BMI] 45.0-49.9, adult; M19.90 Unspecified osteoarthritis, unspecified site; E78.5 Hyperlipidemia, unspecified; K58.9 Irritable bowel syndrome, unspecified; E03.9 Hypothyroidism, unspecified; I48.91 Unspecified atrial fibrillation; E87.5 Hyperkalemia; E66.01 Morbid (severe) obesity due to excess calories; E83.52 Hypercalcemia; D72.829 Elevated white blood cell count, unspecified; G47.33 Obstructive sleep apnea (adult) (pediatric); I42.8 Other cardiomyopathies; I44.7 Left bundle-branch block, unspecified; I25.10 Atherosclerotic heart disease of native coronary artery without angina pectoris; Z96.651 Presence of right artificial knee joint; Z20.822 Contact with and (suspected) exposure to COVID-19; Z79.01 Long term (current) use of anticoagulants; Z99.2 Dependence on renal dialysis; Z87.442 Personal history of urinary calculi; Z95.0 Presence of cardiac pacemaker
CPT/HCPCS: J0282; J0610; J0696; J2060; J2270; J7040; J7060